=== PATIENT | male | born 1990 | race Asian ===

== ENCOUNTER → 2024-02-22 | Outpatient (CLI) | payer BC ==
[2024-02-22 12:20] VITALS: BP 122/85; PULSE 58; RESP 16; TEMP 98.1
--- NOTE | 2024-02-22 12:52 | P.SLEEP ---
History of Present Illness DATE: 02/22/2024 CONSULTATION/NEW PATIENT EVALUATION HISTORY OF PRESENT ILLNESS/SLEEP-WAKE EVALUATION: 73-year-old gentleman had been evaluated in the sleep center for possible obstructive sleep apnea hypopnea syndrome. SLEEP SCHEDULE: Usually sleep schedule from 1 AM to 9 AM on weekdays and from 11 PM to 8 AM on weekend. Patient works at afternoon shift. FALLING ASLEEP: Usually no problems with falling asleep. DURING SLEEP: Patient has loud snoring. No history of hypnogogical hallucinations, sleep paralysis, or cataplexy. DURING THE DAY/WAKE STATE: No significant excessive daytime sleepiness. [place] sleepiness scale is 3. Patient usually does not take naps. PAST MEDICAL HISTORY: Nasal septum deviation. PAST SURGICAL HISTORY: Status post surgery for sinus problems. MEDICATIONS: None at the present time. SOCIAL HISTORY: Please see below. FAMILY HISTORY: Please see below. REVIEW OF SYSTEMS: Loud snoring. Restriction of nasal breathing. No fevers. No double vision. No recent chest pain. No shortness of breath. No abdominal pain. No bleeding episodes. No blood in urine. No seizure episodes. PHYSICAL EXAMINATION: GENERAL: A pleasant patient without any distress. VITAL SIGNS: . HEENT: PERRLA, EOMI. Evaluation of oropharynx showed tongue protrudes midline, low position of soft palate Mallampati 4. NECK: Supple. No JVD. Thyroid is not palpable. 15 inches in circumference. LUNGS: Clear to percussion and to auscultation. Good air exchange. No wheezing or rhonchi. HEART: S1, S2 regular. No murmurs, gallops or rubs. ABDOMEN: Soft and nontender. Bowel sounds are present. No organomegaly appreciated. EXTREMITIES: No clubbing or cyanosis. CERTIFIED EMERGENCY VEHICLE TECHNICIAN: Awake, alert, and oriented x3. Cranial nerves 2 to 7 intact. There is no fasciculation or atrophy noted. No focal deficits observed. ASSESSMENT: 1. Loud snoring, extremely low position of soft palate Mallampati 4, restriction of nasal breathing. Possible obstructive sleep apnea hypopnea syndrome. 2. Nasal septum deviation. 3. Status post nasal surgery for sinus problems. PLAN: 1. Home sleep apnea test for evaluation of patient's breathing during sleep. 2. Plan after reading sleep study. 3. Preferable position during sleep on the side. 4. No driving if patient feels any sleepiness. Patient is aware of civil and criminal liability for unsafe driving. 5. Sleep hygiene with regular sleep time for at least 7.5-8 hours. 6. Watching weight. Thank you very much for referring this patient for consultation. Sincerely, Raffaele Hines MD, PhD, FAASM. Diplomat of [place] [employer], Sleep Medicine Board by [place] [employer] [employer] [facility] [place] cc: Tutu Adair MD, Matt Gregory MD Past Medical History Additional Past Medical History / Comment(s): Lung issues at age 17 - lung broke running - per pt (spontaneous pneumothorax - no surgery), brain bleed - 3 - 4 years ago - from snowboard accident. Pt also states he will be scheduling sinus surgery shortly. History of Any Multi-Drug Resistant Organisms: None Reported Past Surgical History: Appendectomy Additional Past Surgical History / Comment(s): Hernia (?abdominal - age 5), tumor - left ankle - age 4, sinus surgery in the past/puncture hole (patient states will be scheduling sinus surgery again shortly. Past Psychological History: Anxiety Additional Psychological History / Comment(s): Undiagnosed anxiety, patient states he is pretty negative and doesn't feel happy when asked about his work - not sure if depression though (when asked about depression) Smoking Status: Never smoker Past Alcohol Use History: Occasional Past Drug Use History: None Reported - Past Family History Father Family Medical History: Hypertension Additional Family Medical History / Comment(s): Snoring, just had kidney removed Tuesday - "a bad tumor", smoker - smokes 2 packs a day. Physical Exam Vitals: Vital Signs Temp Pulse Resp BP Pulse Ox 02/22/24 12:19 98.1 F 58 L 16 122/85 98 Intake and Output 02/21/24 02/22/24 02/22/24 22:59 06:59 14:59 Other: Weight 79.152 kg Sleep Note - Sleep Data ESS Total: 3 - Sleep Note Sleep Note: Temperature: 98.1 F Pulse Rate: 58 Respiratory Rate: 16 Blood Pressure: 122/85 SpO2: 98 Height: 6 ft Weight: 79.152 kg BMI: Neck Circumference: 15
== END ==
LOC: 3 N SLEEP 11:44
PROVIDERS: ATTEND Internal Medicine
CPT/HCPCS: 99202

== ENCOUNTER → 2024-02-29 | Outpatient (CLI) | payer BC ==
--- NOTE | 2024-03-01 14:58 | P.PCN ---
Description of Procedure: CLINICAL: A home sleep apnea test has been done for confirmation of possible obstructive sleep apnea-hypopnea syndrome. DESCRIPTION OF PROCEDURE: RESULTS: Recording time was 7 hours 20 minutes. Evaluation time was 7 hours 4 minutes. Evaluation time is sufficient for making conclusion about results of the test. Raw data of sleep recording has been reviewed and is adequate. Respiratory channel showed 8 apneas and 14 hypopneas. Apnea-hypopnea index was 3.1 per hour. Pulse rate in the range between minimum 42, maximum 88, average 54 by computer calculation. Lowest desaturation was 89%. IMPRESSION: 1. No significant respiratory abnormalities have been documented during home sleep apnea test, normal oxygenation during sleep. 2. Snoring have been documented during the sleep study. Please see other impressions from consultation. PLAN: 1. Sleep hygiene with regular time in bed for at least 8 hours. 2. Preferable position during the sleep on the side. Thank you very much for allowing me to participate in the management of your patient. Sincerely, Raffaele Hines MD, PhD, FAASM Diplomat of [employer] Sleep Medicine Board of [place] [employer] Safety And Health Manager of [facility] [place] cc: Tutu Adair MD, Matt Gregory MD
== END ==
LOC: 3 N SLEEP 13:14
PROVIDERS: ATTEND Internal Medicine
DX: G47.33 Obstructive sleep apnea (adult) (pediatric) (principal); G47.36 Sleep related hypoventilation in conditions classified elsewhere